=== PATIENT | female | born 1930 | race Caucasian/White ===

== ENCOUNTER → 2016-11-09 | Outpatient (CLI) | payer MEDICARE, OTHER ==
[~2016-11-09] MED LIST: DALIRESP500 MCG PO; DIOVAN160 MG ORAL; EXFORGE 5-3201 EACH ORAL; METOPROLOL SUCC50 MG ORAL; PROPAFENONE HC325 MG PO; SPIRIVA18 MCG INH; VITAMIN D32000 UNI2 PO
--- NOTE | 2016-11-11 13:47 | Diagnostic Imaging Report ---
Indication: Cough Comparison: 03/13/2000 2 views of the chest obtained. Pleural thickening noted in the left hemithorax from apex to base. Lungs are hyperexpanded. A sacral noted. Heart is mildly enlarged. Bones are osteopenic. Moderate degenerative changes of the thoracic spine are present. Impression: COPD. Chronic pleural thickening on the left Pacemaker Atherosclerotic vascular disease Osteopenia and spondylosis
== END | disposition home or self-care (01) ==
LOC: RAD 14:05
DX: R05 Cough (principal)
CPT/HCPCS: 71020